=== PATIENT | female | born 2000 | race Caucasian/White ===

== ENCOUNTER 2022-10-09 20:29 | Emergency (ER) | payer OTHER ==
[~2022-10-09] VITALS: Ht 162.6 cm; Wt 56.7 kg
[2022-10-10] MEDS ORDERED: ZOFRAN8 MG PO (03:19)
[2022-10-10] MEDS ORDERED: OSEL75CA PO (03:19)
[2022-10-10] MEDS ORDERED: DOLOGESIC-DF 51 EACH PO (03:19)
[2022-10-10] MEDS ORDERED: PEPCID40 MG PO (03:19)
== END 2022-10-10 04:22 ==
LOC: ER 20:29
DX: J10.1 Influenza due to other identified influenza virus with other respiratory manifestations (principal); Z20.822 Contact with and (suspected) exposure to COVID-19